=== PATIENT | female | born 1985 | race Caucasian/White ===

== ENCOUNTER 2019-04-09 10:30 | Inpatient (IN) | payer OTHER ==
[~2019-04-09] VITALS: Ht 172.7 cm; Wt 3.2 kg
[2019-04-14] MEDS ORDERED: PRENATAL 19 TA1 EAC1 PO (12:35)
== END 2019-04-18 10:31 | DRG 785 ==
LOC: OB/GYN 04-16 06:54 → O/R 04-16 06:54 → OB/GYN 04-16 10:30
PROVIDERS: ADMIT Obstetrics & Gynecology
PROC: 0UB70ZZ Excision of Bilateral Fallopian Tubes, Open Approach (ICD-10-PCS; 2019-04-16)
PROC: 4A12X4Z Monitoring of Cardiac Electrical Activity, External Approach (ICD-10-PCS; 2019-04-16)
PROC: 4A033R1 Measurement of Arterial Saturation, Peripheral, Percutaneous Approach (ICD-10-PCS; 2019-04-16)
PROC: 10D00Z1 Extraction of Products of Conception, Low, Open Approach (ICD-10-PCS; principal; 2019-04-16 12:45)
DX: O34.211 Maternal care for low transverse scar from previous cesarean delivery (principal); O82 Encounter for cesarean delivery without indication; Z3A.39 39 weeks gestation of pregnancy; Z37.0 Single live birth; Z30.2 Encounter for sterilization; Z22.330 Carrier of Group B streptococcus